=== PATIENT | male | born 1965 | race Caucasian/White ===

== ENCOUNTER 2018-01-30 11:56 | Emergency (ER) | payer SELFPAY ==
--- NOTE | 2018-01-30 12:08 | ED Physician Documentation ---
General Adult - HISTORIAN Historian: patient - HPI Chief Complaint: General Adult (chest wall pain) Additional Information: Patient states that he feel down Monday evening. Not sure how he fell or why he fell. Hit his right chest area and has been having pain in it since that time. Pain is worse with cough. No brusing noted. Onset: other (Monday) Timing: still present - ROS CONST: no problems. denies: fever, chills MS/SKIN/LYMPH: denies: neck pain, joint pain NEURO/PSYCH: denies: headache, fainting, dizziness - PAST HX Past History: none Allergies/Adverse Reactions: Allergies Allergy/AdvReac Type Severity Reaction Status Date / Time No Known Allergies Allergy Verified 01/30/18 12:10 Home Medications: Ambulatory Orders Medication Instructions Recorded NK [NK] 01/30/18 - SOCIAL HX Smoking History: greater than 1 pack/day (1 1/2 pps) Alcohol Use: other (4 beers a day) Drug Use: none - FAMILY HX Family History: No - REVIEWED ASSESSMENTS Nursing Assessment Reviewed: Yes Vitals Reviewed: Yes Progress - Progress Progress: Patient advised to get rib and chest x-ray to rule out rib fracture and possible lung pathology. Patient refused staing that he did not have insurance and did not want to run up a big bill. General Adult Physical Exam - PHYSICAL EXAM GENERAL APPEARANCE: mild distress NECK: normal inspection RESPIRATORY: no resp distress, breath sounds normal. No: wheezes, rales, rhonchi CVS: reg rate & rhythm, heart sounds normal, equal pulses ABDOMEN: soft, no organomegaly BACK: no CVA tenderness SKIN: warm/dry, normal color, other (no ecchymosis noted) NEURO: mood/affect nml, cognition normal Discharge Clincal Impression: Chest wall contusion Qualifiers: Encounter type: initial encounter Laterality: right Qualified Code(s): S20.211A - Contusion of right front wall of thorax, initial encounter Referrals: Primary Doctor,No [Primary Care Provider] - 2 Days Additional Instructions: Try alternating a warm and cool compress to the rib cage area of pain. Splint area when you need to cough. Take2-3 deep breaths every hour while awake. Watch for developing signs of pneumonia. Take some Ibuprofen 200mg tablets, (2-4 tablets per dose) every 6 hours as needed to help with pain or Aleve 220mg tablets (2 tablets per dose) twice a day. Follow-up with your primary care provider if needed in one week. Return to work February 06, 2018. Condition: Stable Disposition: 01 HOME, SELF-CARE Decision to Admit: NO Date of Decison to Admit: 01/30/18 Decision Time: 12:11
[2018-01-30 12:10] VITALS: BP 146/93
== END 2018-01-30 12:25 | disposition home or self-care (01) ==
LOC: ED 11:56
DX: S20.211A Contusion of right front wall of thorax, initial encounter (principal); W19.XXXA Unspecified fall, initial encounter; Y99.9 Unspecified external cause status
CPT/HCPCS: 99282

== ENCOUNTER 2019-07-31 14:17 | Emergency (ER) | payer OTHER ==
[2019-07-31] MEDS: 0.9 % SODIUM CHLORIDE 1,000 ML IV ONE ×3 (14:42→16:56)
[2019-07-31 14:52] LABS: BASOPHILS % 0.5 % (0.0-1.5); NEUTROPHILS # 5.7 # k/uL (1.4-7.7)
[2019-07-31 15:03] LABS: eGFR (Non-African) > 60
[2019-07-31] MEDS: fentaNYL CITRATE/PF 100 MCG/2 ML INJ. IVP ONE ×2 (15:03→16:02)
--- NOTE | 2019-07-31 16:00 | ED Physician Documentation ---
Abdominal Pain - HISTORIAN Historian: patient, spouse, paramedics - HPI Stated Complaint: Abdominal pain Chief Complaint: Abdominal Pain Onset: other (since this morning) Timing: worse Context: denies: out of country travel, bad food, recent trauma Severity: severe Quality: pain Exacerbated by: nothing Relieved by: nothing Further Comments: yes (54 year old male patient brought in by his for evaluation of abdominal pain. Patient states that his abdominal pain started when he got up this morning around 0430 and has gotten worse all day. Ate breakfast around 0830, has had 5 loose bowel movements today. No vomiting, has been able to keep down water. Denies nausea. Report pain is worse across lower abdomen.) - ROS CONST: no problems GI/: none CVS/RESP: none EYES/ENT: none MS/SKIN/LYMPH: none NEURO/PSYCH: anxiety - SOCIAL HX Smoking History: cigarettes - FAMILY HX Family History: denies: none - PAST HX Past History: denies: none Other History: CVA, other (neuropathy, frequent falls) Home Medications: Ambulatory Orders Medication Instructions Recorded Gabapentin 300 mg PO TID 07/31/19 Allergies/Adverse Reactions: Allergies Allergy/AdvReac Type Severity Reaction Status Date / Time No Known Allergies Allergy Verified 07/31/19 14:33 - VITAL SIGNS Vital Signs: Vital Signs Temp Pulse Resp BP Pulse Ox 103.0 F H 108 H 16 139/88 99 07/31/19 18:20 07/31/19 18:20 07/31/19 18:20 07/31/19 18:20 07/31/19 18:20 - REVIEWED ASSESSMENTS Nursing Assessment Reviewed: Yes Vitals Reviewed: Yes Progress - Progress Progress: Normal WBC. Patient extremely tender in right and left lower quadrant; rigid and guarding. Will progress with CT. Medicated for pain with fentanyl IV Reviewed CT results with patient and . Recommend transfer for surgical consult. Patient and prefer [facility]. 1630 Call to [facility], patient accepted into ER by Dr Iraheta - will consult with surgeon. 1635 Recheck of vitals - patient now with temp 102.9. Blood cultures and lactate draw. 1640 Reports called to [facility]; add 1G Invanz per Dr Iraheta. 1630 Call from EMS; returning from [facility] in route to transport. Patient remains stable. 1615 Multiple emergent 911 calls; awaiting transport. Temp 102.9; denies any pain. Vital stable. 1735 Call to EMS - requested [facility] for mutual aid transport. 1815 [facility] at bedside. Vitals stable. Temp 103 at discharge. No complaints of pain since dilaudid. ED Results Lab/Radiology - Lab Results Lab Results: Lab Results 07/31/19 07/31/19 07/31/19 17:21 14:48 14:48 WBC 7.50 K/ul K/ul (4.00-12.00) RBC 3.89 M/ul L M/ul (3.90-5.20) Hgb 12.9 g/dL g/dL (12.0-18.0) Hct 37.9 % % (37.0-53.0) MCV 98.0 fl fl (80.0-100.0) MCH 33.1 pg pg (28.0-34.0) MCHC 33.9 g/dL g/dL (30.0-36.0) RDW 16.3 % H % (11.3-14.3) Plt Count 109 K/mm3 L K/mm3 (130-400) Neut % (Auto) 75.8 % % (39.0-79.0) Lymph % (Auto) 12.4 % L % (16.0-50.0) Sampson % (Auto) 9.0 % % (0.0-11.0) Eos % (Auto) 2.3 % % (0.0-6.8) Baso % (Auto) 0.5 % % (0.0-1.5) Neut # (Auto) 5.7 # k/uL # k/uL (1.4-7.7) Lymph # (Auto) 0.9 # k/uL # k/uL (0.6-4.0) Sampson # (Auto) 0.7 # k/uL # k/uL (0.0-0.9) Eos # (Auto) 0.2 # k/uL # k/uL (0.0-0.6) Baso # (Auto) 0.0 # k/uL # k/uL (0.0-0.5) Sodium 137 mmol/L mmol/L (137-145) Potassium 3.6 mmol/L mmol/L (3.5-5.1) Chloride 111 mmol/L H mmol/L (98-107) Carbon Dioxide 25 mmol/L mmol/L (22-30) Anion Gap 4.6 BUN 5 mg/dL L mg/dL (9-20) Creatinine 0.53 mg/dL L mg/dL (0.66-1.25) Estimated Creat Clear 129 Est GFR ( Amer) > 60 (60 - ) Est GFR (Non-Af Amer) > 60 (60 - ) Glucose 106 mg/dL mg/dL (74-106) Lactate Calcium 9.2 mg/dL mg/dL (8.4-10.2) Total Bilirubin 0.9 mg/dL mg/dL (0.2-1.3) AST 36 U/L U/L (15-46) ALT 22 U/L U/L (13-69) Alkaline Phosphatase 87 U/L U/L (38-126) Total Protein 6.9 g/dL g/dL (6.3-8.2) Albumin 3.9 g/dL g/dL (3.5-5.0) Urine Color Unk (YELLOW) Urine Appearance Unk (CLEAR) Urine pH 7.0 (5.0 - 8.0) Ur Specific Arthur 1.015 (1.010-1.030) Urine Protein Negative mg/dL mg/dL (NEGATIVE) Urine Ketones Negative mg/dL mg/dL (NEGATIVE) Urine Occult Blood Negative (NEGATIVE) Urine Nitrite Negative (NEGATIVE) Urine Bilirubin Negative (NEGATIVE) Urine Urobilinogen 0.2 Eu Eu (0.2-1.0) Ur Leukocyte Esterase Negative (NEGATIVE) Urine Glucose Negative mg/dL mg/dL (NEGATIVE) 07/31/19 14:37 WBC RBC Hgb Hct MCV MCH MCHC RDW Plt Count Neut % (Auto) Lymph % (Auto) Sampson % (Auto) Eos % (Auto) Baso % (Auto) Neut # (Auto) Lymph # (Auto) Sampson # (Auto) Eos # (Auto) Baso # (Auto) Sodium Potassium Chloride Carbon Dioxide Anion Gap BUN Creatinine Estimated Creat Clear Est GFR ( Amer) Est GFR (Non-Af Amer) Glucose Lactate 1.7 U/L U/L (0.7-2.1) Calcium Total Bilirubin AST ALT Alkaline Phosphatase Total Protein Albumin Urine Color Urine Appearance Urine pH Ur Specific Arthur Urine Protein Urine Ketones Urine Occult Blood Urine Nitrite Urine Bilirubin Urine Urobilinogen Ur Leukocyte Esterase Urine Glucose - Radiology Radiology Impressions: Exam: CT abdomen pelvis with contrast. History: Mid and lower abdominal pain. Axial images through the abdomen and pelvis after IV infusion of 90 cc Omnipaque is submitted along with sagittal and coronal reformatted images. In the visualized lower lung pickens no valery consolidation or effusion is seen. A hiatal hernia is identified. No free intraperitoneal air is identified. The gallbladder is distended without stones. The liver, spleen and pancreas are normal attenuation and enhancement. The adrenal glands are normal configura tion. The abdominal aorta is of normal caliber and associated with atherosclerotic plaque. No periaortic lymphadenopathy is identified. Both kidneys are normal attenuation and enhancement without hydronephrosis or hydroureter. Mucosal thickening and fluid distention are identified in several lower small bowel loops which may represent an enteritis. A prominent appearance to the appendix with surrounding inflammatory changes are noted suggestive of appendicitis. Air and stool seen throughout the large intestine. No other bony abnormalities are identified. Impression: Hiatal hernia. No hydronephrosis or hydroureter. Mucosal thickening and fluid distention of several lower small bowel loops are noted which may represent enteritis. A prominent appearance of the appendix with surrounding inflammatory changes is suggestive of pedis itis. Clinical correlation is recommended. Electronically signed on Jul 31, 2019 4:11:24 PM CDT by: Andi France - Orders Orders: ED Orders Category Date Time Status Place IV Lock 1T Care 07/31/19 14:[address] ABD & PELVIS W/ CON Stat Exams 07/31/19 Completed BLOOD CULTURE Stat Lab 07/31/19 Ordered CBC/PLATELET/DIFF Stat Lab 07/31/19 14:48 Completed CMP Stat Lab 07/31/19 14:48 Completed LACTATE Stat Lab 07/31/19 14:37 Completed UA MACRO DIP ONLY Stat Lab 07/31/19 17:21 Completed 0.9 % Sodium Chloride [Normal Saline] 1,000 ml Med 07/31/19 14:41 Discontinued IV .STK-MED 0.9 % Sodium Chloride [Normal Saline] 1,000 ml Med 07/31/19 14:46 Discontinued IV NOW 0.9 % Sodium Chloride [Normal Saline] 1,000 ml Med 07/31/19 16:53 Discontinued IV NOW Ertapenem Sodium [INVanz] 1 gm Med 07/31/19 16:42 Discontinued 0.9 % Sodium Chloride [Normal Saline] 50 ml IV NOW HYDROmorphone HCL/PF [Dilaudid] Med 07/31/19 16:42 Discontinued 1 mg IVP NOW ONE Ketorolac Tromethamine [Toradol] Med 07/31/19 16:31 Discontinued 30 mg IVP NOW ONE Lactated Ringers [Ringers, Lactated] 1,000 ml Med 07/31/19 17:56 Discontinued IV .STK-MED Lactated Ringers [Ringers, Lactated] 1,000 ml Med 07/31/19 18:00 Discontinued IV Q10H fentaNYL CITRATE/PF [Sublimaze] Med 07/31/19 14:46 Discontinued 50 mcg IVP NOW ONE fentaNYL CITRATE/PF [Sublimaze] Med 07/31/19 16:00 Discontinued 50 mcg IVP NOW ONE Abdominal Pain Physical Exam - Physical Exam General Appearance: mild distress, other (flat affect) RESPIRATORY: no resp distress, chest non-tender, breath sounds normal CVS: reg rate & rhythm, heart sounds normal, equal pulses, no murmur, no gallop, PMI nml, no JVD, no friction rub, 24 ABDOMEN: no distension, rigid, tenderness (with mild palpation), abnormal bowel sounds, decreased BS BACK: normal inspection, no CVA tenderness SKIN: warm/dry, normal color, other (nose with cyanosis, poor cap refill > 4 sec in nail beds) EXTREMITIES: non-tender, normal range of motion, no evidence of injury, no edema, J, [employer] NEURO: oriented X3, CN's nml as tested, motor nml, sensation nml Vital Signs: Vital Signs Temp Pulse Resp BP Pulse Ox 103.0 F H 108 H 16 139/88 99 07/31/19 18:20 07/31/19 18:20 07/31/19 18:20 07/31/19 18:20 07/31/19 18:20 Discharge Clincal Impression: Gastroenteritis Acute appendicitis Qualifiers: Acute appendicitis type: with localized peritonitis Appendicitis gangrene presence: without gangrene Appendicitis perforation presence: without perforation Appendicitis abscess presence: without abscess Qualified Code(s): K35.30 - Acute appendicitis with localized peritonitis, without perforation or gangrene Referrals: Primary Doctor,No [Primary Care Provider] - 2 Days Condition: Serious Disposition: 02 XFER SHT-TRM HOSP Decision to Admit: NO Decision Time: 16:44
--- NOTE | 2019-07-31 16:16 | Diagnostic Imaging Report ---
MAE CROOK ([employer]) - ER [facility] [address] [facility] [address] [place], [place]. [address] Report Submission Date: Jul 31, 2019 4:11:24 PM CDT Patient Study Name: CAROL MILLER Date: Jul 31, 2019 3:41:28 PM CDT Modality Type: CT\SR Gender: M Description: CT ABD PELVIS W/ CON : 61 Institution: [facility] Physician: MAE CROOK ([employer]) - ER Exam: CT abdomen pelvis with contrast. History: Mid and lower abdominal pain. Axial images through the abdomen and pelvis after IV infusion of 90 cc Omnipaque is submitted along with sagittal and coronal reformatted images. In the visualized lower lung pickens no valery consolidation or effusion is seen. A hiatal hernia is identified. No free intraperitoneal air is identified. The gallbladder is distended without stones. The liver, spleen and pancreas are normal attenuation and enhancement. The adrenal glands are normal configuration. The abdominal aorta is of normal caliber and associated with atherosclerotic plaque. No periaortic lymphadenopathy is identified. Both kidneys are normal attenuation and enhancement without hydronephrosis or hydroureter. Mucosal thickening and fluid distention are identified in several lower small bowel loops which may represent an enteritis. A prominent appearance to the appendix with surrounding inflammatory changes are noted suggestive of appendicitis. Air and stool seen throughout the large intestine. No other bony abnormalities are identified. Impression: Hiatal hernia. No hydronephrosis or hydroureter. Mucosal thickening and fluid distention of several lower small bowel loops are noted which may represent enteritis. A prominent appearance of the appendix with surrounding inflammatory changes is suggestive of pedis itis. Clinical correlation is recommended. Electronically signed on Jul 31, 2019 4:11:24 PM CDT by: Andi KABA
[2019-07-31] MEDS: KETOROLAC TROMETHAMINE 30 MG/1ML VIAL IVP ONE (16:51)
[2019-07-31] MEDS: ERTAPENEM SODIUM 1 GM in 0.9 % SODIUM CHLORIDE 50 ML IV ONE (16:51)
[2019-07-31] MEDS: HYDROmorphone HCL/PF 1 MG/ML VIAL IVP ONE (16:52)
[2019-07-31] MEDS: LACTATED RINGERS 1,000 ML IV SCH (18:00)
[2019-07-31] MEDS: LACTATED RINGERS 1,000 ML IV ONE (18:26)
[2019-07-31 18:27] VITALS: BP 139/88
[2019-07-31 18:36] LABS: OCCULT BLOOD,URINE NEGATIVE (NEGATIVE); UROBILINOGEN URINE 0.2 Eu (0.2-1.0)
== END 2019-07-31 18:10 | disposition short-term general hospital (02) ==
LOC: ED 14:17
DX: K52.9 Noninfective gastroenteritis and colitis, unspecified (principal); K35.30 Acute appendicitis with localized peritonitis, without perforation or gangrene
CPT/HCPCS: 74177; 80053; 81002; 83605; 85025; 87040; 99282; J1170; J1335; J1885; J3010; J7030; J7120; Q9967; S1016